=== PATIENT | female | born 1950 | race Caucasian/White ===

== ENCOUNTER 2019-08-30 13:50 | Emergency (ER) | payer BC, MEDICARE ==
[2019-08-30] MEDS ORDERED: Tetan/Diph/Pertus SYR(Tdap)* 0.5 ML SYR(BOOSTRIX) use SYR contains LATEX IM ONE (15:35)
[2019-08-30] MEDS ORDERED: DOXYcycline CAP(*) 100 MG PO ONE (16:27)
[2019-08-30 16:46] VITALS: BP 157/108
--- NOTE | 2019-08-30 17:29 | ED ---
Bite Injury/Animal - HPI Summary HPI Summary: This patient is a 68-year-old female presenting to the ED with a R little finger laceration measuring approximately 6 cm in length and is horizontal just distal to the PIP. Patient states she was trying to get a stick out of her dog' s mouth when the area was pinched between the stick and the dog's tooth. She is endorsing small amount of swelling to the area and is concerned for a fracture. She has never fractured this area in the past. Tetanus is not up to date. Bleeding is well controlled on arrival. Patient appears well and is endorsing a 1/10 pain. She arrives with ice. Patient states this was not a bite. Dog is her own and immunizations are up to date. - History of Current Complaint Chief Complaint: EDAnimalBite Stated Complaint: ANIMAL BITE PER PT Time Seen by Provider: 08/30/19 14:26 Hx Obtained From: Patient Onset of Injury: Happened minutes ago Type of Bite: Animal Hx of Bite: Unprovoked Has Animal Been Immunized?: Yes Severity Initially: Mild Severity Currently: Mild Pain Intensity: 1 Pain Scale Used: 0-10 Numeric Character: Abrasion/Laceration Associated Signs And Symptoms: Positive: Negative Animal Available for Observation: Yes Animal Control Notified: No - Risk Factors Infection/Sepsis Risk Factors: Negative - Allergies/Home Medications Allergies/Adverse Reactions: Allergies Allergy/AdvReac Type Severity Reaction Status Date / Time amoxicillin [From Augmentin] Allergy Itching Verified 08/30/19 13:56 clavulanic acid Allergy Itching Verified 08/30/19 13:56 [From Augmentin] PMH/Surg Hx/FS Hx/Imm Hx Previously Healthy: Yes - Cancer History Hx Chemotherapy: No Hx Radiation Therapy: No - Immunization History Hx Pertussis Vaccination: No Immunizations Up to Date: Yes Infectious Disease History: No Infectious Disease History: Denies: Traveled Outside the [place] in Last 30 Days - Social History Occupation: Unemployed Lives: With Family Alcohol Use: None Hx Substance Use: No Substance Use Type: Reports: None Smoking Status (MU): Never Smoked Tobacco Review of Systems Negative: Fever, Chills, Fatigue, Skin Diaphoresis Negative: Palpitations, Chest Pain Negative: Shortness Of Breath, Cough Genitourinary: Negative Positive: no symptoms reported, see HPI, hematuria Positive: Arthralgia - right small finger Positive: Other - laceration All Other Systems Reviewed And Are Negative: Yes Physical Exam Triage Information Reviewed: Yes Vital Signs On Initial Exam: Initial Vitals Temp Pulse Resp BP Pulse Ox 97.4 F 106 16 157/96 97 08/30/19 13:53 08/30/19 13:53 08/30/19 13:53 08/30/19 13:53 08/30/19 13:53 Vital Signs Reviewed: Yes Appearance: Positive: Well-Appearing, Well-Nourished Skin: Positive: Warm, Skin Color Reflects Adequate Perfusion, Other - laceration - superificial Eyes: Positive: EOMI, Conjunctiva Clear Neck: Positive: Supple, Nontender Respiratory/Lung Sounds: Positive: Clear to Auscultation, Breath Sounds Present Cardiovascular: Positive: Pulses are Symmetrical in both Upper and Lower Extremities Musculoskeletal: Positive: Limited @ - PIP joint of the litle R finger Neurological: Positive: Speech Normal Psychiatric: Positive: Normal, Affect/Mood Appropriate AVPU Assessment: Alert Procedures - Sedation Patient Received Moderate/Deep Sedation with Procedure: No Diagnostics - Vital Signs Vital Signs Temp Pulse Resp BP Pulse Ox 08/30/19 16:37 98.7 F 90 16 157/108 96 08/30/19 13:53 97.4 F 106 16 157/96 97 - Laboratory Lab Statement: Any lab studies that have been ordered have been reviewed, and results considered in the medical decision making process. Bite Injury Course/Dx - Course Course Of Treatment: X-ray obtained which shows: Nondisplaced fracture fragment at the volar base of the middle phalanx. Cleanse wound thoroughly. Adhesive applied. Patient was placed on doxycycline (patient allergic to amoxicillin) for open fx and she will follow up with ortho. Splint applied. Tetanus updated. - Diagnoses Differential Diagnosis/HQI/PQRI: Positive: Crush Injury, Laceration, Puncture Provider Diagnosis: Laceration, Finger fracture Images - Images Hands: 1 - laceration - superifical Discharge ED - Sign-Out/Discharge Documenting (check all that apply): Patient Departure - Discharge Plan Condition: Stable Disposition: HOME Prescriptions: DOXYcycline CAP(*) [DOXYcycline 100MG CAP(*)] 100 mg PO BID #9 cap Patient Education Materials: Doxycycline (By mouth), Finger Fracture (ED) Referrals: Shelli Munson MD [Medical Doctor] - Raina Roy NP [Primary Care Provider] - Additional Instructions: Doxycycline 100mg twice daily x 5 days - Billing Disposition and Condition Condition: STABLE Disposition: Home
== END 2019-08-30 16:37 | disposition home or self-care (01) ==
LOC: ED 13:50
DX: S61.216A Laceration without foreign body of right little finger without damage to nail, initial encounter (principal); W54.0XXA Bitten by dog, initial encounter; Y92.9 Unspecified place or not applicable
CPT/HCPCS: 73140; 90471; 90715; 99282; A9270-GY

== ENCOUNTER 2021-12-11 15:16 | Inpatient (IN) ==
[2021-12-11] MEDS ORDERED: Ondansetron 4 mg VIAL 2 MG/ML 2 ml VIAL IV ONE (15:47)
[2021-12-11] MEDS ORDERED: NS 0.9% 1000 ml BAG 1,000 ML IV ONE (15:47)
[2021-12-11 16:17] LABS: ABS Basophils 0.1 10^3/ul (0-0.2); ABS Eosinophils 0.1 10^3/ul (0-0.6); ABS Lymphocytes 0.9 10^3/ul (1.0-4.8); ABS Monocytes 0.9 10^3/ul (0-0.8); ABS Neutrophils 11.7 10^3/ul (1.5-7.7); Eosinophil % 0.4 %; Hematocrit 40 % (35-47); Hemoglobin 13.8 g/dL (12.0-16.0); Lymphocyte % 6.7 %; Mean Corpuscular HGB Conc 35 g/dL (31-36); Mean Corpuscular Hemoglobin 30 pg (27-31); Mean Corpuscular Volume 87 fL (80-97); Mean Platelet Volume 8.2 fL (7.4-10.4); Platelet Count 173 10^3/uL (150-450); Red Blood Count 4.58 10^6 /uL (3.70-4.87); Red Cell Distribution Width 13 % (10-15); White Blood Count 13.7 10^3/uL (3.5-10.8)
[2021-12-11 16:38] LABS: Urine Appearance Clear; Urine Bilirubin Negative (Negative); Urine Blood Negative (Negative); Urine Color Yellow; Urine Glucose Negative (Negative); Urine Ketones Trace (Negative); Urine Nitrite Negative (Negative); Urine Protein Negative (Negative); Urine Specific Gravity 1.006 (1.002-1.030); Urine Urobilinogen Negative (Negative)
[2021-12-11 16:50] LABS: ALT 13 U/L (7-52); AST 15 U/L (13-39); Albumin/Globulin Ratio 1.7 (1-3); Alkaline Phosphatase 69 U/L (35-149); Anion Gap 7 mmol/L (2-11); Blood Urea Nitrogen 10 mg/dL (6-24); C Reactive Protein 161.24 mg/L (<8.01); CO2 Carbon Dioxide 30 mmol/L (22-32); Calcium 9.1 mg/dL (8.6-10.3); Chloride 97 mmol/L (101-111); Globulin 2.3 g/dL (2-4); Glucose 178 mg/dL (70-100); Lipase < 10 U/L (11.0-82.0); Potassium 3.4 mmol/L (3.5-5.0); Sodium 134 mmol/L (135-145); Total Protein 6.3 g/dL (6.4-8.9); eGFR CKD-EPI 86.1 (>60)
[2021-12-11 16:54] LABS: Urine Bacteria Absent (Absent); Urine Red Blood Cell Absent (Absent); Urine Squamous Epithelial Cell Present (Absent); Urine White Blood Cell Trace(0-5/hpf) (Absent)
[2021-12-11] MEDS ORDERED: Morphine 4 MG/ML VIAL (1 ml) IV ONE (18:33)
[2021-12-11] MEDS ORDERED: Iodixanol (CONTRAST) 320 MG/ML 100 ML SDV IV ONE (18:41)
[2021-12-11] MEDS ORDERED: Insulin GLARGINE 100 un/ml 10 ml VIAL SUBCUT ONE (18:45)
[2021-12-11] MEDS ORDERED: ceFOXitin 2 GM IVPREMIX 2 GM/50 ML BAG IVPB ONE (20:02)
[2021-12-11] MEDS ORDERED: Bupivacaine 0.25% w/EPI 10 ML SDV ONE (20:40)
[2021-12-11] MEDS ORDERED: Midazolam 2 mg/2 ml VIAL 1 mg/ml 2 ml VIAL (2 mg) ONE (20:45)
[2021-12-11] MEDS ORDERED: fentaNYL 250 mcg/5 ml 50 MCG/ML 5 ml VIAL (250 MCG) ONE (20:45)
[2021-12-11] MEDS ORDERED: Rocuronium 50 mg VIAL 10 mg/ml 5 ml VIAL (50 mg) ONE ×2 (20:45→21:48)
[2021-12-11] MEDS ORDERED: Propofol 10 MG/ML 20 ML BTL ONE (20:47)
[2021-12-11] MEDS ORDERED: Ondansetron 4 mg VIAL 2 MG/ML 2 ml VIAL ONE (20:47)
[2021-12-11] MEDS ORDERED: Dexamethasone IV 4 MG/ML VIAL 1 ml VIAL ONE (20:47)
[2021-12-11] MEDS ORDERED: Lidocaine 2% PF 5 ML VIAL ONE (20:48)
[2021-12-11] MEDS ORDERED: Phenylephrine IV 10 MG/ML 1 ml VIAL ONE (20:48)
[2021-12-11] MEDS ORDERED: Bupivacaine 0.25% SDV PF 10 ML VIAL INJ ONE ×2 (21:50→21:54)
[2021-12-11] MEDS ORDERED: Sugammadex 500 MG/5 ML 5 ml VIAL IV PUSH ONE (22:10)
[2021-12-11] MEDS ORDERED: HYDROmorphone 1 MG/1 ML SYRINGE IV PRN (22:12)
[2021-12-11] MEDS ORDERED: Ondansetron 4 mg VIAL 2 MG/ML 2 ml VIAL IV PRN ×2 (22:12→22:45)
[2021-12-11] MEDS ORDERED: DiMENhydriNATE IV 50 mg/ml 1 ml VIAL IV PUSH PRN (22:12)
[2021-12-11] MEDS ORDERED: Acetaminophen IV 1 GM/100ML 100 ML IV PRN (22:12)
[2021-12-11] MEDS ORDERED: Naloxone 0.4 mg VIAL 0.4 mg/ml 1 ml VIAL IV PRN (22:12)
[2021-12-11] MEDS ORDERED: fentaNYL 100 mcg/2 ml 50 MCG/ML VIAL IV PRN (22:12)
[2021-12-11] MEDS ORDERED: Morphine 2 MG/ML SYRINGE IV PRN (22:50)
[2021-12-11] MEDS ORDERED: Dextrose 50% Syringe 50 ml 25 GM/50 ML SYRINGE IV PUSH PRN (22:51)
[2021-12-11] MEDS ORDERED: Lactated Ringers 1000 ml BAG 1,000 ML IV SCH (23:00)
[2021-12-12] MEDS: Ciprofloxacin 400mg IVPREMIX 400 MG/200 ML BAG IVPB SCH ×2 (01:41→13:44)
[2021-12-12] MEDS: metroNIDAZOLE IV 500 MG/100ML 500 MG/100 ML BAG IVPB SCH ×2 (03:05→09:46)
[2021-12-12] MEDS: HYDROcodone/ACETAMIN 5/325 mg TAB PO PRN ×2 (09:45→16:22)
[2021-12-12 12:21] VITALS: BP 124/60
== END 2021-12-12 16:30 | disposition home or self-care (01) | DRG 225 ==
LOC: ED 15:16 → SDS 20:33 → SSU 20:59
PROVIDERS: ADMIT Surgery; ATTEND Surgery